=== PATIENT | female | born 1955 | race Caucasian/White ===

== ENCOUNTER 2019-06-06 16:46 | Emergency (ER) | payer MEDICAID ==
[~2019-06-06] VITALS: Ht 165.1 cm; Wt 57.0 kg
[2019-06-06 19:11] VITALS: BP 116/69
== END 2019-06-06 19:56 | disposition home or self-care (01) ==
LOC: ED 19:30
DX: G43.909 Migraine, unspecified, not intractable, without status migrainosus (principal); E11.9 Type 2 diabetes mellitus without complications
CPT/HCPCS: 96372; 99283; J1170; J2765; Q0163